=== PATIENT | female | born 1990 | race Asian ===

== ENCOUNTER 2023-05-13 01:50 | Inpatient (IN) | payer BC, OTHER ==
[2023-05-13 03:27] VITALS: BMI 28.5
[2023-05-13] MEDS: ELECTROLYTE-148 SOLN 1,000 ML IV SCH ×2 (03:51→05:45)
[2023-05-13 04:21] LABS: INR 0.92 (0.83-1.09); PROTHROMBIN TIME (PATIENT) 10.7 SEC (9.7-13.0)
[2023-05-13 04:24] LABS: ACTIVATED PTT 31.3 SECONDS (25.2-36.5)
[2023-05-13 05:03] LABS: BASO % 0.1 % (0-2.0); EOS % 0.2 % (0-4.5); HEMATOCRIT 35.6 % (32.4-45.2); HEMOGLOBIN 11.9 GM/dL (10.7-15.3); LYMPH % 13.8 % (8-40); MCH 24.2 pg (25.7-33.7); MCHC 33.4 g/dl (32.0-36.0); MEAN CELL VOLUME 72.3 fl (80-96); MEAN PLT VOLUME 8.6 fl (7.5-11.1); MONO % 4.3 % (3.8-10.2); NEUT % 81.6 % (42.8-82.8); PLATELET COUNT 291 10^3/uL (134-434); RBC 4.92 M/mm3 (3.60-5.2); RDW 14.5 % (11.6-15.6); WHITE BLOOD COUNT 14.4 K/mm3 (4.0-10.0)
[2023-05-13] MEDS ORDERED: FENTANYL/BUPIVACAINE/NS/PF - PCEA - 50 ML DISP.SYRIN EP ONE (05:06)
[2023-05-13] MEDS ORDERED: LIDO 2%/EPI 1:200000 PRESRVFRE (20 ML SDVIAL) ONE (05:20)
[2023-05-13] MEDS ORDERED: BUPIVACAINE HCL/PF 0.25% (2.5MG/ML) 10 ML VIAL ONE (05:21)
[2023-05-13] MEDS ORDERED: NALOXONE HCL 0.4 MG/ML VIAL IVPUSH PRN (05:39)
[2023-05-13] MEDS ORDERED: FENTANYL/BUPIVACAINE/NS/PF - PCEA - 50 ML DISP.SYRIN EP SCH (05:45)
[2023-05-13 05:46] LABS: POTASSIUM 4.2 mmol/L (3.5-5.1)
[2023-05-13 05:48] LABS: BLOOD UREA NITROGEN 8.2 mg/dL (7-18)
[2023-05-13 05:51] LABS: CREATININE 0.4 mg/dL (0.55-1.3)
[2023-05-13] MEDS ORDERED: OXYTOCIN 20 UNITS in 0.9% NS 20 UNIT/1,000 ML INFUS.BAG IV ONE (08:56)
[2023-05-13] MEDS ORDERED: METHYLERGONOVINE MALEATE 0.2 MG/1 ML AMP IM PRN (09:44)
[2023-05-13] MEDS ORDERED: BENZOCAINE 28 GM HEMORRHOIDAL OINTMENT TP PRN (09:44)
[2023-05-13] MEDS ORDERED: WITCH HAZEL 50% (TUCKS) 40 PAD/JAR PAD TP PRN (09:44)
[2023-05-13] MEDS ORDERED: BENZOCAINE 20% 57 GM BOTTLE TP PRN (09:44)
[2023-05-13] MEDS ORDERED: ACETAMINOPHEN 325 MG TABLET (FP) PO PRN (09:44)
[2023-05-13] MEDS ORDERED: BISACODYL 10 MG SUPP.RECT RC PRN (09:44)
[2023-05-13] MEDS ORDERED: oxyCODONE HCL 5 MG TABLET PO PRN (09:44)
[2023-05-13] MEDS ORDERED: OXYTOCIN 20 UNITS in 0.9% NS 20 UNIT/1,000 ML INFUS.BAG IV SCH (09:45)
[2023-05-13] MEDS: IBUPROFEN 600 MG TABLET (FP) PO PRN ×2 (11:03→19:45)
[2023-05-14 07:58] LABS: BASO % 0.4 % (0-2.0); EOS % 0.7 % (0-4.5); HEMATOCRIT 33.9 % (32.4-45.2); LYMPH % 22.1 % (8-40); MCH 23.8 pg (25.7-33.7); MCHC 32.4 g/dl (32.0-36.0); MEAN CELL VOLUME 73.4 fl (80-96); MEAN PLT VOLUME 8.5 fl (7.5-11.1); MONO % 4.9 % (3.8-10.2); NEUT % 71.9 % (42.8-82.8); PLATELET COUNT 260 10^3/uL (134-434); RBC 4.63 M/mm3 (3.60-5.2); RDW 14.7 % (11.6-15.6); WHITE BLOOD COUNT 14.4 K/mm3 (4.0-10.0)
[2023-05-14] MEDS: IBUPROFEN 600 MG TABLET (FP) PO PRN ×2 (11:37→16:25)
[2023-05-14] MEDS ORDERED: SENNOSIDES/DOCUSATE COMBO (SENNA PLUS) TABLET (UD) PO PRN (22:00)
[2023-05-15] MEDS: IBUPROFEN 600 MG TABLET (FP) PO PRN ×2 (02:04→14:25)
[2023-05-15 09:08] VITALS: BP 89/50; PULSE 75; RESP 16; TEMP 98
== END 2023-05-15 14:35 | disposition home or self-care (01) | DRG 807 ==
LOC: JLDR 01:50 → J3W 10:40
PROVIDERS: ADMIT Obstetrics & Gynecology; ATTEND Specialist
PROC: 10E0XZZ Delivery of Products of Conception, External Approach (ICD-10-PCS; principal; 2023-05-13)
PROC: 0HQ9XZZ Repair Perineum Skin, External Approach (ICD-10-PCS; 2023-05-13)
DX: O70.0 First degree perineal laceration during delivery (principal); Z37.0 Single live birth; Z3A.40 40 weeks gestation of pregnancy
CPT/HCPCS: 36415; 80048; 85025; 85610; 85730; 86780; 86850; 86900; 86901